=== PATIENT | male | born 1975 | race Caucasian/White ===

== ENCOUNTER 2016-07-05 06:44 | Emergency (ER) | payer OTHER ==
[~2016-07-05] VITALS: Ht 182.9 cm; Wt 73.5 kg
[2016-07-05 06:44] VITALS: BP 124/78
[2016-07-05] MEDS ORDERED: IBUPROFEN 400 MG TABLET ONE (06:53)
[2016-07-05] MEDS ORDERED: IBUPROFEN 400 MG TABLET PO ONE (07:00)
== END 2016-07-05 07:41 | disposition home or self-care (01) ==
LOC: ER 06:49
DX: S60.022A Contusion of left index finger without damage to nail, initial encounter (principal); K21.9 Gastro-esophageal reflux disease without esophagitis; F17.200 Nicotine dependence, unspecified, uncomplicated; Y09 Assault by unspecified means; Y93.89 Activity, other specified; Y92.89 Other specified places as the place of occurrence of the external cause; Y99.8 Other external cause status
CPT/HCPCS: 29130; 73130; 99284; A4606; Z7610

== ENCOUNTER 2017-05-30 16:56 | Emergency (ER) | payer OTHER ==
[~2017-05-30] VITALS: Ht 182.9 cm; Wt 99.8 kg
[2017-05-30] MEDS ORDERED: ONDANSETRON HCL/PF 4 MG/2 ML VIAL ONE (17:58)
[2017-05-30] MEDS ORDERED: ALBUTEROL FS 2.5 MG/3 ML VIAL.NEB NEB ONE (18:00)
[2017-05-30] MEDS ORDERED: ONDANSETRON HCL/PF 4 MG/2 ML VIAL IVP ONE (18:00)
[2017-05-30] MEDS ORDERED: IV NS 0.9% 1,000 ML BAG IV ONE (18:00)
[2017-05-30] MEDS ORDERED: IPRATROPIUM NEB FS 0.5 MG/2.5 ML AMPUL.NEB NEB ONE (18:00)
[2017-05-30 18:11] LABS: BASOPHILS % (AUTO) 0.8 % (0.0-2.0); EOSINOPHILS # (AUTO) 0.1 /CMM (0.0-0.7); EOSINOPHILS % (AUTO) 2.7 % (0.0-6.0); HEMATOCRIT 43 % (39-51); HEMOGLOBIN 14.7 g/dL (13.5-17.5); LYMPHOCYTES # (AUTO) 1.3 /CMM (0.8-4.8); LYMPHOCYTES % (AUTO) 23.6 % (20.0-44.0); MEAN CORPUSCULAR HEMOGLOBIN 31 PG (26.0-33.0); MEAN CORPUSCULAR HGB CONC 35 g/dl (31.0-36.0); MEAN CORPUSCULAR VOLUME 91 fL (80-96); MONOCYTES # (AUTO) 0.4 /CMM (0.1-1.30); NEUTROPHILS # (AUTO) 3.5 /CMM (1.8-8.9); NEUTROPHILS % (AUTO) 64.9 % (43.0-81.0); PLATELET COUNT (AUTO) 401 /CMM (150-450); RDW COEFFICIENT OF VARIATION 12.7 (11.5-15.0); WHITE BLOOD COUNT (AUTO) 5.3 K/uL (4.3-11.0)
[2017-05-30 18:21] LABS: CALCIUM, SERUM 9.3 mg/dL (8.5-10.1); CREATININE 0.9 mg/dL (0.6-1.3); POTASSIUM 4.1 mmol/L (3.5-5.1)
[2017-05-30 18:26] LABS: ALBUMIN 4.2 g/dL (3.4-5.0); BILIRUBIN,TOTAL 0.2 mg/dL (0.2-1.0); TOTAL PROTEIN, SERUM 7.9 g/dL (6.4-8.2)
[2017-05-30] MEDS ORDERED: ALBUTEROL FS 2.5 MG/3 ML VIAL.NEB ONE (18:40)
[2017-05-30] MEDS ORDERED: IPRATROPIUM NEB FS 0.5 MG/2.5 ML AMPUL.NEB ONE (18:41)
[2017-05-30] MEDS ORDERED: LORAZEPAM INJ 2 MG/ML VIAL ONE (19:23)
[2017-05-30] MEDS ORDERED: LORAZEPAM INJ 2 MG/ML VIAL IV ONE (19:30)
[2017-05-30 20:20] VITALS: BP 143/94
== END 2017-05-30 20:20 | disposition home or self-care (01) ==
LOC: ER 16:58
DX: R11.0 Nausea (principal); J98.01 Acute bronchospasm; F12.10 Cannabis abuse, uncomplicated; F41.9 Anxiety disorder, unspecified; R63.0 Anorexia; K21.9 Gastro-esophageal reflux disease without esophagitis
CPT/HCPCS: 36415; 71045; 80048; 80076; 85025; 94640; 96361; 96374; 96375; 99285; A4606; J2060; J2405; J7030; Z7610

== ENCOUNTER 2019-03-10 | Emergency (ER) | payer OTHER ==
[~2019-03-10] VITALS: Ht 190.5 cm; Wt 93.0 kg
[2019-03-10 00:12] VITALS: BP 123/79
[2019-03-10] MEDS ORDERED: TDAP [DIPH/PERTUSSIS/TET] 0.5 ML VIAL IM ONE ×2 (00:27→00:30)
[2019-03-10] MEDS ORDERED: IBUPROFEN 600 MG TABLET PO ONE (00:32)
[2019-03-10] MEDS ORDERED: IBUPROFEN 400 MG TABLET PO ONE (01:00)
== END 2019-03-10 00:43 | disposition home or self-care (01) ==
LOC: ER 00:02
DX: S61.431A Puncture wound without foreign body of right hand, initial encounter (principal); K21.9 Gastro-esophageal reflux disease without esophagitis; F12.10 Cannabis abuse, uncomplicated; W54.0XXA Bitten by dog, initial encounter; Y93.89 Activity, other specified; Y92.89 Other specified places as the place of occurrence of the external cause; Y99.8 Other external cause status
CPT/HCPCS: 90471; 90715; 99283; A6403

== ENCOUNTER 2020-03-25 18:31 | Emergency (ER) | payer OTHER ==
[~2020-03-25] VITALS: Ht 190.5 cm; Wt 82.6 kg
[2020-03-25 18:38] VITALS: BP 128/88
--- NOTE | 2020-03-25 19:05 | NUR ---
Patient discharged to home in stable condition. Written and verbal after care instructions given. Patient verbalizes understanding of instruction.
== END 2020-03-25 19:06 | disposition home or self-care (01) ==
LOC: ER 18:35
DX: H00.016 Hordeolum externum left eye, unspecified eyelid (principal); K21.9 Gastro-esophageal reflux disease without esophagitis

== ENCOUNTER 2021-04-30 01:13 | Emergency (ER) | payer OTHER ==
[~2021-04-30] VITALS: Ht 190.5 cm; Wt 79.4 kg
[2021-04-30 01:25] VITALS: BP 138/76
== END 2021-04-30 02:23 | disposition home or self-care (01) ==
LOC: ER 01:15
DX: Z20.822 Contact with and (suspected) exposure to COVID-19 (principal); K21.9 Gastro-esophageal reflux disease without esophagitis
CPT/HCPCS: 87426; 99283; C9803

== ENCOUNTER 2021-09-12 15:52 | Emergency (ER) | payer OTHER ==
[~2021-09-12] VITALS: Ht 190.5 cm; Wt 102.7 kg
[2021-09-12] MEDS ORDERED: HYDROCODONE/APAP 5/325MG TABLET PO ONE (16:30)
[2021-09-12] MEDS ORDERED: HYDROCODONE/APAP 5/325MG TABLET ONE (16:46)
[2021-09-12] MEDS ORDERED: HYDR-4209 PO (17:31)
[2021-09-12] MEDS ORDERED: IBUP-1955 PO (17:31)
[2021-09-12 18:11] VITALS: BP 131/69
== END 2021-09-12 18:12 | disposition home or self-care (01) ==
LOC: ER 15:58
DX: S76.111A Strain of right quadriceps muscle, fascia and tendon, initial encounter (principal); M25.561 Pain in right knee; K21.9 Gastro-esophageal reflux disease without esophagitis; Z79.899 Other long term (current) drug therapy; V00.131A Fall from skateboard, initial encounter; Y93.51 Activity, roller skating (inline) and skateboarding; Y92.89 Other specified places as the place of occurrence of the external cause; Y99.8 Other external cause status
CPT/HCPCS: 73552; 73564-TC; 73610-TC

== ENCOUNTER 2022-10-20 22:52 | Emergency (ER) | payer OTHER ==
[~2022-10-20] VITALS: Ht 190.5 cm; Wt 95.3 kg
[~2022-10-20 22:52] MED LIST: HYDR-4209 PO; IBUP-1955 PO
--- NOTE | 2022-10-21 00:05 | NUR ---
0005 BIBS FROM HOME W/ CC OF ABDL PAIN W/ DIARRHEA SINCE YESTERDAY. 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 PT HAS HX OF ABD-TESTICULAR HERNIA. PLACED IN BED, VITALS CHECKED.
--- NOTE | 2022-10-21 00:43 | NUR ---
18GA TO LEFT AC ESTABLISHED; BLOOD WORK COLLECTED, SENT TO LAB
--- NOTE | 2022-10-21 00:45 | NUR ---
URINE COLLECTED, SENT TO LAB
[2022-10-21] MEDS ORDERED: IV NS 0.9% 500 ML BAG IV ONE (01:00)
[2022-10-21 01:22] LABS: BASOPHILS # (AUTO) 0.1 K/uL (0.0-0.2); BASOPHILS % (AUTO) 0.5 % (0.0-2.0); EOSINOPHILS % (AUTO) 0.2 % (0.0-6.0); HEMATOCRIT 42 % (39-51); LYMPHOCYTES # (AUTO) 1.1 K/uL (0.8-4.8); LYMPHOCYTES % (AUTO) 11.5 % (20.0-44.0); MEAN CORPUSCULAR HGB CONC 34 g/dl (31.0-36.0); MEAN CORPUSCULAR VOLUME 92 fL (80-96); MONOCYTES # (AUTO) 0.5 K/uL (0.1-1.30); MONOCYTES % (AUTO) 5.8 % (2.0-12.0); NEUTROPHILS # (AUTO) 7.7 K/uL (1.8-8.9); PLATELET COUNT (AUTO) 365 K/uL (150-450); RED BLOOD CELL COUNT(AUTO) 4.52 MIL/uL (4.5-6.0); WHITE BLOOD COUNT (AUTO) 9.4 K/uL (4.3-11.0)
[2022-10-21] MEDS ORDERED: IOHEXOL-350 100 ML VIAL IV ONE (01:25)
[2022-10-21] MEDS ORDERED: CT SWABBABLE VALVE TRANS SET 1 EA INFUS.SET MC ONE (01:25)
[2022-10-21] MEDS ORDERED: IV NS 0.9% 250 ML IV ONE (01:25)
[2022-10-21 01:40] LABS: ALBUMIN 4.3 g/dL (3.4-5.0); BILIRUBIN,DIRECT 0.1 mg/dL (0.0-0.2); BILIRUBIN,TOTAL 0.7 mg/dL (0.2-1.0); CALCIUM, SERUM 9.4 mg/dL (8.5-10.1); CREATININE 0.9 mg/dL (0.6-1.3); POTASSIUM 3.9 mmol/L (3.5-5.1); TOTAL PROTEIN, SERUM 7.7 g/dL (6.4-8.2)
--- NOTE | 2022-10-21 01:45 | NUR ---
PT TAKEN TO CT W/ TECH
[2022-10-21 01:56] LABS: BILIRUBIN,URINE NEGATIVE (NEGATIVE); COLOR,URINE OTHER (YELLOW); LEUKOCYTE ESTERASE ,URINE NEGATIVE (NEGATIVE); NITRITE, URINE NEGATIVE (NEGATIVE); PROTEIN,URINE NEGATIVE (NEGATIVE); UGLUCOSE NEGATIVE (NEGATIVE); UROBILINOGEN,URINE 0.2 EU/dL (0.2)
[2022-10-21 02:27] LABS: BACTERIA,URINE Rare /HPF (None Seen); RBC,URINE 0-2 /HPF (0-2); SQUAMOUS EPITHELIAL CELL,UR Rare /HPF (None Seen); WBC,URINE 0-2 /HPF (0-3)
[2022-10-21] MEDS ORDERED: OXYC5TAB3 PO (04:52)
[2022-10-21] MEDS ORDERED: LOPE2TAB25 PO (04:52)
--- NOTE | 2022-10-21 06:03 | NUR ---
Patient discharged to home in stable condition. Written and verbal after care instructions given. Patient verbalizes understanding of instruction. IV removed. Catheter intact and site benign. Pressure and 4x4 applied to site. No bleeding noted.
[2022-10-21 06:04] VITALS: BP 118/72
== END 2022-10-21 06:04 | disposition home or self-care (01) ==
LOC: ER 22:52
DX: K42.9 Umbilical hernia without obstruction or gangrene (principal); R19.7 Diarrhea, unspecified; R10.9 Unspecified abdominal pain; K21.9 Gastro-esophageal reflux disease without esophagitis
CPT/HCPCS: 99285; 74177; 96360; 85025; 80048; 87086; 83690; 80076; 81001; 36415; J7050; J7040; Q9967